=== PATIENT | female | born 2000 | race Caucasian/White ===

== ENCOUNTER 2021-12-04 04:44 | Observation (INO) | payer BC, SELFPAY ==
[2021-12-04] VITALS (12 sets, daily range): BP systolic 108–156; BP diastolic 59–103; PULSE 62–90; RESP 16–20; TEMP 36.3–36.9; O2SAT 97–100; BMI 24.3
--- NOTE | ~2021-12-04 | CT_ITS ---
EXAMINATION: CT abdomen pelvis w con DATE: 12/04/2021 09:51 INDICATION: Left lower quadrant pain. History of UTI. Sepsis. TECHNIQUE: Computed tomography (CT) of the abdomen and pelvis was performed with 100 cc Omnipaque 300 intravenous contrast. The dose-length product was 456.80 mGy-cm. Automated exposure control and iter ative reconstruction technique were employed. COMPARISON: None. FINDINGS: Lung bases are unremarkable. Heart size normal. No significant pleural or pericardial effus ion. The liver, spleen, pancreas, adrenal glands and kidneys are unremarkable. Gallbladder is present . No free air or free fluid. Nonobstructive bowel gas pattern. No evidence for appendicitis or divert iculitis. No significant vascular abnormality. IMPRESSION: 1. No acute abdominal abnormality. Reviewed, dictated and finalized at location B.
[2021-12-04 05:37] LABS: Basophils Percent Auto 0.2 % (0.2-1.2); Eosinophils Absolute Auto 0.5 K/mm3 (0-0.3); Eosinophils Percent Auto 2.8 % (0-4.4); Hematocrit 43.9 % (37.0-47.0); Hemoglobin 14.7 g/dL (12.0-15.0); Immature Granulocyte Absolute 0.06 K/mm3 (0.00-0.031); Immature Granulocyte Percent A 0.3 % (0-0.5); Lymphocytes Absolute Auto 1.87 K/mm3 (0.9-3.2); Lymphocytes Percent Auto 10.2 % (18.3-44.2); Mean Corpuscular HGB Conc 33.5 g/dl (32-36); Mean Corpuscular Hemoglobin 30.1 pg (26-34); Mean Corpuscular Volume 89.8 fl (80-100); Mean Platelet Volume 10.1 fl (7.4-10.4); Monocytes Absolute Auto 1.2 K/mm3 (0.1-0.6); Monocytes Percent Auto 6.5 % (2.6-8.5); Neutrophils Absolute Auto 14.7 K/mm3 (1.3-6.7); Platelet Count Result 245 k/mm3 (150-375); Red Blood Count 4.89 M/mm3 (4.2-5.4); Red Cell Distribution Width 13.2 % (11.5-14.5); White Blood Count 18.4 K/mm3 (4.5-10.0)
[2021-12-04 05:47] LABS: Anion Gap 9 mmol/L (8-16); Blood Urea Nitrogen 13 mg/dL (7-17); Calcium 9.1 mg/dL (8.4-10.2); Carbon Dioxide 21 mmol/L (22-30); Chloride 107 mmol/L (98-107); Estimated CRCL calculation 137 ml/min; Estimated Glomerular Filt Rate > 60; Glucose 119 mg/dL (65-110); Potassium 3.9 mmol/L (3.4-5.0); Sodium 137 mmol/L (137-145)
[2021-12-04] MEDS: cefTRIAXone 2 GM in SODIUM CHLORIDE 0.9% IV 100 ML 200 ML IVPB (05:47)
[2021-12-04 06:12] LABS: Appearance Urine Clear (Clear); Bilirubin Urine 1+ (Negative); Color Urine Yellow (Yellow); Glucose Urine UA Negative (Negative); Ketones Urine Trace mg/dL (Negative); Leukocyte Esterase Ur Negative LEU/UL (Negative); Nitrate Urine Negative (Negative); Protein Urine 1+ mg/dL (Negative); Specific Grav Ur >= 1.030 (1.001-1.035); Urobilinogen Urine 0.2 mg/dL (<2.0)
[2021-12-04 06:21] LABS: Add Urine Microscopic? YES; Blood Urine Trace-Intact (Negative)
[2021-12-04 06:23] LABS: Bacteria Urine Trace /hpf; Mucus Urine Few /lpf; Squamous Epithelial Cell Urine Many /hpf (Few)
--- NOTE | 2021-12-04 07:07 | ED.FEMALEGU ---
HPI - Female Genitourinary General Chief complaint: Abdominal Pain <Shannan Brand MD - Last Filed: 12/04/21 08:14> Stated complaint: vomiting x 1 hour - another facility uti/sepsis <Shannan Brand MD - Last Filed: 12/04/21 08:14> Time Seen by Provider: 12/04/21 05:01 <Shannan Brand MD - Last Filed: 12/04/21 08:14> History of Present Illness HPI Narrative: Patient had been seen at an outside hospital, diagnosed with a UTI, started on antibiotics but she left AMA. She is now having nausea and vomiting, right flank pain still. Also endorses some vaginal discharge. <Shannan Brand MD - Last Filed: 12/04/21 08:14> Related Data Allergies/Adverse reactions: Allergies Allergy/AdvReac Type Severity Reaction Status Date / Time Penicillins Allergy Unknown Hives Verified 12/04/21 07:24 <Shannan Brand MD - Last Filed: 12/04/21 08:14> Review of Systems Review of Systems: CONST: No fever. HEENT: No sore throat C/V: No chest pain RESP: No cough GI: Reports abdominal pain, nausea, vomiting : Vaginal discharge. M/S: No joint pain. SKIN: No rash. NEURO: [No headache or focal numbness or weakness] PSYCH: [No depression] <Shannan Brand MD - Last Filed: 12/04/21 08:14> [facility] Past Medical History Medical History: Medical History (Updated 12/04/21 @ 10:41 by Moo Gutierrez MD) Psychiatric disorder <Shannan Brand MD - Last Filed: 12/04/21 08:14> Social History Social History: Social History (Updated 12/04/21 @ 07:12 by Shannan Brand MD) Alcohol intake: former Substance use: former <Shannan Brand MD - Last Filed: 12/04/21 08:14> Exam Narrative: EXAMINATION OF ORGAN SYSTEMS/BODY AREAS: Constitutional: Vital signs per nursing GENERAL: Appears uncomfortable, actively retching HEAD: Normal with no signs of head trauma. EYES: EOMI, conjunctiva normal ENT: Hearing grossly intact LUNGS: Nonlabored breathing. HEART: [Regular rate and rhythm] ABD: [Soft], R CVAT : Patient refused /pelvic exam EXT: Normal range of motion SKIN: Rash NEURO: [Alert and oriented x 3. No gross focal sensory or strength deficits.] PSYCH: Normal affect <Shannan Brand MD - Last Filed: 12/04/21 08:14> General appearance: Well-developed, well-nourished does not look in pain or distress until I examined her left lower quadrant which triggered severe vomiting Skin: Normal color Chest and respiratory: Airway patent, no respiratory distress, no accessory muscle use Heart: Regular rate/rhythm Abdomen: Soft, severe tenderness left lower quadrant, no guarding or rebound no organomegaly, quiet bowel sounds Neurologic: Alert and oriented ?3, SILK CONDITIONER is normal as tested, no gross motor deficit <Moo Gutierrez MD - Last Filed: 12/04/21 11:13> Course Course Emergency Course: 21-year-old female presenting here after being diagnosed with UTI at outside hospital and leaving AMA, vital stable here, exam shows soft, nontender abdomen, I suspect likely UTI, versus gastroenteritis versus PID. Doubt endocarditis without chest pain/shortness of breath and IV drug use last 1 year ago. Urine does show UTI, she also squamous cells, however she does not want pelvic exam so I cannot assess for PID, though her abdomen is soft and nontender and benign. I will treat her empirically for STDs, and for nausea and vomiting, patient signed out to oncoming ER physician pending improvement in her nausea/vomiting. <Shannan Brand MD - Last Filed: 12/04/21 08:14> Reevaluation(s) Reevaluation #1: Currently patient feeling much better, CT scan of the abdomen pelvis did not show any significant finding to explain patient's severe left lower quadrant pain with vomi
[2021-12-04] MEDS: diphenhydrAMINE HCl INJ 50 MG/ML VIAL 25 MG IV PUSH (07:25)
[2021-12-04] MEDS: LACTATED RINGERS 1,000 ML 999 ML IV CONT (07:25)
[2021-12-04] MEDS: METOCLOPRAMIDE HCL INJ 10 MG/2 ML VIAL IV PUSH (07:25)
[2021-12-04] MEDS: metroNIDAZOLE 500 MG/ISO 100ML 500 MG/100 ML BAG 100 MG IVPB (07:34)
[2021-12-04] MEDS: DOXYCYCLINE 100 MG/NS 100 ML 100 MG/100 ML BAG IVPB ×2 (08:57→20:16)
[2021-12-04] MEDS: SODIUM CHLORIDE 0.9% IV 1,000 ML 999 ML IV CONT (09:53)
[2021-12-04] MEDS: ONDANSETRON INJ 4 MG/2 ML VIAL 8 MG IV PUSH (09:54)
[2021-12-04 10:02] LABS: Lipase 80 U/L (23-300)
[2021-12-04 11:58] LABS: Amphetamine Screen Urine Positive (Negative); Barbiturate Screen Urine Negative (Negative); Benzodiazepines Screen Urine Negative (Negative); Cannabinoid Screen Urine Positive (Negative); Cocaine Screen Urine Negative (Negative); Methadone Screen Urine Negative (Negative); Opiate Screen Urine Negative (Negative); Phencyclidine Screen Urine Negative (Negative)
[2021-12-04] MEDS: SODIUM CHLORIDE 0.9% IV 1,000 ML 150 ML IV CONT (12:59)
[2021-12-04] MEDS: ONDANSETRON INJ 4 MG/2 ML VIAL IV PUSH ×2 (13:55→17:51)
--- NOTE | 2021-12-04 15:22 | ADMGEN ---
This patient, Alejandra Najera, was admitted to 2 Medical Room 240-01. Patient/family oriented to hospital policies and general routines including ID bracelet, bed and alarms, visiting hours, pain management, procedures, bathroom and other care routines, personal items, smoking policy, room service/diet, and visiting hours. Information on how to activate the Rapid Response Team has been discussed. Patient/Family are encouraged to report perceived risks to care and to ask questions if they do not understand what they are told or what they should do.
--- NOTE | 2021-12-04 17:48 | PM.IMHP ---
H&P: HPI History of Present Illness Date/Time: Patient was placed observation status for expected length of stay less than 23 hours for management, will plan to re-evaluate tomorrow for improvement. 12/04/21 17:48 Chief Complaint: Nausea and vomiting Narrative: Ms. Najera is a 21-year-old female who presented to the emergency room with complaints of nausea and vomiting. Patient states that she was recently hospitalized an outside hospital for sepsis from a urinary tract infection and was given antibiotics overnight then sent home. Per the emergency room records patient stated that she had left against medical advice. In the emergency room patient stated she was still having nausea vomiting as well as right flank pain. Patient had also complained of vaginal discharge, but refused to have a pelvic exam. Per EMS patient was seen at [facility] as well as [facility]. Patient states that at [facility] she was hospitalized for 1 night. Patient states she did receive 24 hours of antibiotics and was sent home with no further antibiotics. Patient states that 2 nights ago she did drink a 5th of Javed Goose and has recently been smoking methamphetamines. Patient states she continues to have right flank pain that radiates to her abdomen. Patient denies any dysuria, hematuria, frequency, or urgency. Patient states she has had continuous nausea and vomiting. Per patient's outpatient pharmacy patient did have a prescription for doxycycline as well as metronidazole. Upon evaluation emergency room patient did have a urinalysis performed and refused a pelvic exam. It was noted the patient had a leukocytosis with a white blood cell count of 18.4 with a urinalysis that showed no nitrites 4-6 wbc's many squamous epithelial cells trace bacteria and negative for leukocyte esterase. Patient's drug screen was positive for amphetamines as well as cannabinoids. Since patient did refuse pelvic exam she was treated with doxycycline, Rocephin, and Flagyl. Patient states her only past medical history is alcohol and drug abuse. Review of Systems Review of Systems: A 12 point review of systems was completed patient all pertinent positive and negative per HPI the remainder are unremarkable. [facility] Past Medical History Medical History (Updated 12/04/21 @ 18:04 by Miranda Jeffrey APRN) Alcohol abuse Drug abuse Psychiatric disorder Family History Family History (Updated 12/04/21 @ 15:27 by Caty Best RN) Father Diabetes mellitus Mother Diabetes mellitus Cerebrovascular accident Father Cerebrovascular accident Mother Acute myocardial infarction Social History Social History (Updated 12/04/21 @ 07:12 by Shannan Brand MD) Years smoked: 5 Smoking status: Current every day smoker Tobacco type: e-cigarettes/vaping Second hand tobacco smoke exposure: Yes Alcohol intake: former Substance use: former Substance use type: marijuana, amphetamines and opiates Other substance usage details: Patient states use of Marijuana, Methamphetamine and Fentanyl. Last use: marijuana- yesterday, amphetamines- 2 days ago, opiates- 2 wks ago Spiritual care concerns: No Meds Home Medications and Allergies Home Medications Medication Instructions Recorded Confirmed Type doxycycline hyclate 100 mg PO DAILY #14 tablet 12/04/21 Rx metronidazole 500 mg PO Q12H 7 Days #14 tablet 12/04/21 Rx ondansetron 4 mg PO Q6H PRN #14 tablet 12/04/21 Rx Allergies Allergy/AdvReac Type Severity Reaction Status Date / Time Penicillins Allergy Unknown Hives Verified 12/04/21 15:22 Vital Signs Vital Signs - 24 hr 12/04/21 04:47 12/04/21 04:56 12/04/21 06:47 Temperature 36.3 C L Pulse Rate 84 88 90 Respiratory Rate 20 20 18 Blood Pressure 135/88 135/88 127/87 Pulse Oximetry 97 99 97 12/04/21 09:03 12/04/21 09:58 12/04/21 11:08 Temperature 36.4 C Pulse Rate 68 62 65 Respiratory Rate 16 17 16 Blood Pressu
[2021-12-04] MEDS: NICOTINE (*PBKC) 21 MG PATCH 1 PATCH TRANSDERM (20:14)
[2021-12-04] MEDS: LORazepam (*CRX) 1 MG TABLET PO (20:16)
[2021-12-04] MEDS: hydrOXYzine HCL 25 MG TABLET 50 MG PO (21:33)
[2021-12-05] VITALS: BP 128/59
[2021-12-05] MEDS: SODIUM CHLORIDE 0.9% IV 1,000 ML 150 ML IV CONT (03:06)
[2021-12-05] MEDS: ONDANSETRON INJ 4 MG/2 ML VIAL IV PUSH ×2 (03:06→08:23)
[2021-12-05 04:00] VITALS: BP 128/59
[2021-12-05 06:48] LABS: Alanine Aminotransferase 31 U/L (6-35); Alkaline Phosphatase 58 U/L (38-126); Anion Gap 8 mmol/L (8-16); Aspartate Amino Transferase 35 U/L (14-36); Bilirubin,Total 0.7 mg/dL (0.2-1.3); Blood Urea Nitrogen 9 mg/dL (7-17); Calcium 8.6 mg/dL (8.4-10.2); Carbon Dioxide 25 mmol/L (22-30); Chloride 104 mmol/L (98-107); Estimated CRCL calculation 119 ml/min; Estimated Glomerular Filt Rate > 60; Glucose 105 mg/dL (65-110); Potassium 3.8 mmol/L (3.4-5.0); Sodium 137 mmol/L (137-145)
[2021-12-05 07:05] VITALS: BP 138/80; PULSE 81; RESP 18; TEMP 36.7; O2SAT 100
[2021-12-05] MEDS: LORazepam (*CRX) 1 MG TABLET PO (08:34)
[2021-12-05] MEDS: NICOTINE (*PBKC) 21 MG PATCH 1 PATCH TRANSDERM (08:34)
[2021-12-05] MEDS: ENOXAPARIN 40 MG/0.4 ML SYRINGE SUB-Q (08:34)
--- NOTE | 2021-12-05 09:06 | PM.IMPN ---
Progress Note: A&P Assessment and Plan (1) Nausea & vomiting: Qualifiers: Vomiting type: unspecified Qualified Code(s): R11.2 - Nausea with vomiting, unspecified Code(s): R11.2 - Nausea with vomiting, unspecified Status: Acute Assessment and Plan: Etiology of nausea vomiting could be multifactorial. Patient states she has been drinking again. Patient states he did drink a 5th of Javed Goose vodka the other night. Patient did have a prescription filled for Flagyl, and if patient was drinking while taking Flagyl this to cause profuse vomiting. Patient's urinalysis appears to be more contaminant then a urinary tract infection. Patient is refusing pelvic exam but chlamydia and gonorrhea were ordered off of patient's urine. Will continue to treat for possible PID at this time. Patient states she does smoke marijuana on a regular basis. She could also possibly have cyclic vomiting syndrome from routine use of cannabinoids. (2) Abdominal pain: Qualifiers: Abdominal location: left lower quadrant Qualified Code(s): R10.32 - Left lower quadrant pain Code(s): R10.9 - Unspecified abdominal pain Status: Acute Assessment and Plan: Patient's CT scan shows no acute abdominal abnormality. Unsure of patient's abdominal pain is secondary to vomiting. At this point time will continue to monitor patient. (3) Drug abuse: Code(s): F19.10 - Other psychoactive substance abuse, uncomplicated Status: Acute Assessment and Plan: Patient states that she did smoke methamphetamines 2 nights ago and her urine drug screen was positive for amphetamines. (4) Alcohol abuse: Code(s): F10.10 - Alcohol abuse, uncomplicated Status: Acute Assessment and Plan: Patient states she did drink a 5th of Javed Goose [address] patient on [facility] protocol and monitor closely (5) Anxious appearance: Code(s): R45.89 - Other symptoms and signs involving emotional state Status: Acute Assessment and Plan: continue conversations to relieve anxiety Subjective Date/time seen: 12/05/21 09:06 Patient appears very anxious this morning. She is sitting walking about in the room. Patient reports that her friends are underway to come pick her up. She does not want to be admitted to the hospital. She is signing out AMA. She is alert and oriented x4. At the time of her signing out AMA she denied any nausea, vomiting, upset stomach or diarrhea. She reports that if she becomes significantly worse she will come back to hospital. of note the patient does have a significant drug abuse history and reports doing methamphetamines 2 days ago. She may be withdrawing from additional substances. Review of Systems Review of Systems: All systems reviewed & are unremarkable except as noted in HPI and below Exam Narrative: General: No acute distress. Anxious, fidgeting Mental Status: Awake, alert and oriented to person, place, and time with clear speech. Skin: Skin in warm, dry and intact. scattered abrasion bilateral upper extremities Head: Normocephalic and atraumatic. Eyes: Conjunctivae are clear without exudates or hemorrhage. Sclera is non-icteric. EOM are intact, PERRLA. Ears: The external ear and canal are non-tender and without swelling or discharge. Nose: Nasal mucosa is pink and moist. Septum midline. Nares patent bilaterally. Throat: Oral mucosa pink and moist with good dentition. Tongue midline. Neck: The neck supple without adenopathy. Trachea midline. No JVD. Cardiac: S1 and S2 regular rate and rhythm. No murmurs, gallops, or rubs auscultated. Respiratory: Chest wall symmetric, nontender and without deformity or trauma. Respirations even and unlabored. Lung sounds are clear to auscultation in all lobes bilaterally without wheezes, rhonchi, or rales. Abdominal: Abdomen soft, round and non-tender to palpation. Bowel sounds present and normoactiv
--- NOTE | 2021-12-05 09:19 | PC.NURSE ---
Pt requesting to be discharged. It was explained that she cannot be discharged but will be leaving against medical advice. Pt was provided an AMA form, which she signed. PA at the bedside explained to her that she has an infection and requires IV abx, which she had received up until this time. The PA told her that if she leaves from here that she will need to go to another healthcare provider, hospital ER, or Urgent Care center to get a prescription for oral antibiotics and furhter treatment for her condition. Pt apologized for leaving, stating that she didn't want to be a jerk--everyone here has been so nice. But, I can't stand being in the hospital. I have to get out of here. My sister will take me to [place]. Pt was wheeled to main entrance to await her ride.
== END 2021-12-05 09:13 | disposition left against medical advice (07) ==
LOC: ANHED 11:12 → ANH3MEDSUR 13:48 → ANH2MED 14:06
PROVIDERS: Emergency Medicine; Nurse Practitioner Adult Health; Admitting Provider Chiropractor; Emergency Provider Emergency Medicine; Visit Provider Chiropractor
DX: R11.2 Nausea with vomiting, unspecified (principal); R10.9 Unspecified abdominal pain; F17.290 Nicotine dependence, other tobacco product, uncomplicated; F12.90 Cannabis use, unspecified, uncomplicated; F15.90 Other stimulant use, unspecified, uncomplicated; F11.90 Opioid use, unspecified, uncomplicated; F10.10 Alcohol abuse, uncomplicated; R45.89 Other symptoms and signs involving emotional state
CPT/HCPCS: 36415; 74177; 80048; 80053; 80307; 81001; 81025; 83690; 83735; 85025; 87040; 87491; 87591; 96361; 96365; 96367; 96372; 96375; 96376; 99285; A9270; G0378; G0379; J0696; J1200; J1650; J2405; J2765; J7030; J7120; Q9967

== ENCOUNTER 2024-11-15 09:09 | Emergency (ER) | payer BC, SELFPAY ==
--- NOTE | ~2024-11-15 | CT_ITS ---
EXAMINATION: CT abdomen pelvis w con DATE: 11/15/2024 12:16 INDICATION: Abdominal pain TECHNIQUE: Computed tomography (CT) of the abdomen and pelvis was performed with 100 mL Omnipaque-350 intravenous contrast. Automated exposure control and iterative reconstruction technique were employe d. The dose-length product was 571.98 mGy-cm. COMPARISON: 12/04/2021 FINDINGS: Lung bases are clear. Heart size is normal. No pericardial or pleural effusion. Liver, gallbladder, s pleen, pancreas, bilateral adrenal glands and kidneys are normal. Bowels including the appendix are n ormal. Bladder, uterus and bilateral adnexa are unremarkable. Small amount of likely physiologic free fluid in the cul-de-sac. No abscess or free intraperitoneal gas. No pathologically enlarged abdomina l or pelvic lymphadenopathy. Bones are unremarkable. IMPRESSION: 1. Small amount of likely physiologic free fluid in the cul-de-sac. No acute intra-abdominal/pelvic p rocess. Reviewed, dictated and finalized at location B. IMPRESSION: 1. Small amount of likely physiologic free fluid in the cul-de-sac. No acute in tra-abdominal/pelvic process.
--- NOTE | ~2024-11-15 | XR_ITS ---
EXAMINATION: XR chest 2V DATE: 11/15/2024 10:09 INDICATION: Recent pneumonia TECHNIQUE: PA and lateral views of the chest were obtained. COMPARISON: None FINDINGS: The lungs are clear with no focal airspace opacities, pulmonary edema, pleural effusion or pneumothor ax. The cardiomediastinal silhouette is normal. Visualized bones and soft tissues are unremarkable. IMPRESSION: 1. No acute cardiopulmonary disease. Reviewed, dictated and finalized at location B.
[2024-11-15 09:25] VITALS: BP 131/83; PULSE 103; RESP 16; TEMP 36.8; O2SAT 100
--- OUTSIDE RECORDS SUMMARY | 2024-11-15 09:42 | XMS_ITS | Patient Health Record ---
Author Organization [facility] Address [address] [place] [address] Care Team Providers Care Roll Changer Name Role Phone JimenesFransisca Primary Care Provider [phone] Annabel Wiggins Unavailable [phone] Annabel Wiggins Unavailable [phone] Allergies Allergen (clinical drug ingredient) Drug/Non Drug Allergy documented on EMR Reaction Allergy Type Onset Date Status PENICILLIN hives Drug Allergy Active Reason For Referral No Information Medications Medication SIG (Take, Route, Fr equency, Duration) Notes Start Date End Date Status Concerta 54 MG 1 tablet in the morn ing Orally Once a day for 30 days 05/04/2018 Active cloNIDine HCl 0.1 MG 1-3 tablet Orally a s directed. full tablet in am and three tablet in pm for 30 days Active Zoloft 50 MG 1 tablet Orally Once a day for 30 days Active Vistaril 100 MG 1 capsule as needed Orally three times daily for 30 days Ac tive Tryptophan 500 MG 1 tablet Orally Once a day at bedtime as needed for sleep for 30 days 04/04/2018 Active LaMICtal 25 MG 2 tablets Orally onc e daily for 30 days Active Concerta 54 MG 1 tablet in the morn ing Orally Once a day for 30 days 04/08/2018 Active Social History Tobacco Use: Social History Observation Description Date Details (start date - stop date) Current Smoker NA - NA Sex Assigned At : Social History Observation Description Sex Assigned At Female Dont use, Tobacco Use/Smoking Question Answer Notes Are you a current smoker Section Notes: Discussed the risks of smoki ng and discussed smoking cessations. Discussed the risks of smoki ng and discussed smoking cessations. Discussed the risks of smoki ng and discussed smoking cessations. Discussed the risks of smoki ng and discussed smoking cessations. Discussed the risks of smoki ng and discussed smoking cessations. Discussed the risks of smoki ng and discussed smoking cessations. Discussed the risks of smoki ng and discussed smoking cessations. Discussed the risks of smoki ng and discussed smoking cessations. Discussed the risks of smoki ng and discussed smoking cessations. Discussed the risks of smoki ng and discussed smoking cessations. Discussed the risks of smoki ng and discussed smoking cessations. Discussed the risks of smoki ng and discussed smoking cessations. Discussed the risks of smoki ng and discussed smoking cessations. Discussed the risks of smoki ng and discussed smoking cessations. Discussed the risks of smoki ng and discussed smoking cessations. Discussed the risks of smoki ng and discussed smoking cessations. Discussed the risks of smoki ng and discussed smoking cessations. Discussed the risks of smoki ng and discussed smoking cessations. Discussed the risks of smoki ng and discussed smoking cessations. Discussed the risks of smoki ng and discussed smoking cessations. Problems Problem Type SNOMED Code ICD Code Onset Dates Problem Status W/U Status Risk Notes Problem [id number] PTSD (post-traumatic stress disorder) (F43.10) Active confirmed Problem 430986245 ADHD (attention deficit hyperactivity disorder) (F90.9) Active confirmed Problem [id number] 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 Plan Of Treatment No Information Insurance Providers Payer Name Payer Address Payer Phone Subscriber Number Group Number Insured Name Patient Relationship to Insured Coverage Start Date Coverage End Date [facility] Attn Claims Department [address] [place] [address] [phone] [id number] Alejandra Najera Self - patient is the insured 4 [facility] Attn Claims Department [address] [place] [address] [phone] [id number] Alejandra Najera Self - patient is the insured 1 Medical (General) History Hospitalization History Reason Date(Month/Year) cutting october 201608/05 SI 09/05
--- OUTSIDE RECORDS SUMMARY | 2024-11-15 09:42 | XMS_ITS | Clinical Summary ---
Author Organization [facility] Address [address] [place] [address] Care Team Providers Care Manager Search Name Role Phone Unavailable Primary Care Provider Unavailabl e Social History Tobacco Use Types Packs/Day Years Used Date Smoking Tobacco: Never Assessed Comments Unknown Sex and Gender Information Value Date Recorded Sex Assigned at Not on file Legal Sex Female 7:53 PM CDT Gender Identity Not on file Sexual Orientation Not on file Plan of Treatment Health Maintenance Due Date Last Done Comments Cervical Cancer Screening Pa p Smear (Age 21 to 29) Every 3 Years 2001 Cervical Cancer Screening 2001 Annual Physical 01/29/2004 HPV Vaccines (1 - 3-dose series) 01/29/2016 Meningococcal B Vaccine (1 o f 2 - Standard) 2017 Hepatitis C 2019 DTaP, Tdap and Td Vaccines ( 1 - Tdap) 01/29/2020 Hepatitis B Vaccines (1 of 3 - 19+ 3-dose series) 01/29/2020 COVID-19 Vaccine ( - 2023-2 5 season) 2024 Meningococcal Vaccine Aged Out No zafar randell eligible based on patient's age to complete this topic Pneumococcal Vaccine: Pediat rics (0 to 5 Years) and At-Risk Patients (6 to 49 Years) Aged Out No longer eligible b ased on patient's age to complete this topic RSV Immunizations Under 20 Months Aged Out No longer eligible based on patient's age to complete this topic
--- OUTSIDE RECORDS SUMMARY | 2024-11-15 09:42 | XMS_ITS | CONTINUITY OF CARE DOCUMENT ---
Author Name patrick nguyen Address Unknown Organization [facility] Address [address] [place] [address] Phone [phone] Care Team Providers Care Coverage Specialist Name Role Phone John Luna MD Unavailable [phone] John Luna MD Unavailable [phone] INSURANCE PROVIDERS Payer name Policy type / Coverage type [place] red republican [employer] Medicaid 1 [id number] [facility] [id number]
--- NOTE | 2024-11-15 09:57 | ECG_ITS ---
Test Date: 2024-11-15 10:46:16 Measurements Intervals [place] Rate: 92 P: 35 WV: 158 QRS: 71 QRSD: 103 T: 39 QT: 357 QTc: 443 Interpretive Statements SINUS RHYTHM NORMAL ECG No previous ECG available for comparison Electronically Signed On 11-15-2024 10:57:09 CDT by Earnest Burciaga D.O.
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
[2024-11-15 10:41] LABS: Basophils Absolute Auto 0.1 K/mm3 (0.0-0.1); Basophils Percent Auto 0.6 % (0.2-1.2); Eosinophils Absolute Auto 0.4 K/mm3 (0-0.3); Hematocrit 42.2 % (37.0-47.0); Hemoglobin 13.3 g/dL (12.0-15.0); Immature Granulocyte Absolute 0.03 K/mm3 (0.00-0.031); Immature Granulocyte Percent A 0.3 % (0-0.5); Lymphocytes Absolute Auto 2.23 K/mm3 (0.9-3.2); Lymphocytes Percent Auto 22.1 % (18.3-44.2); Mean Corpuscular HGB Conc 31.5 g/dl (32-36); Mean Corpuscular Hemoglobin 28.7 pg (26-34); Mean Corpuscular Volume 91.1 fl (80-100); Mean Platelet Volume 9.6 fl (7.4-10.4); Monocytes Absolute Auto 0.8 K/mm3 (0.1-0.6); Monocytes Percent Auto 7.9 % (2.6-8.5); Neutrophils Absolute Auto 6.6 K/mm3 (1.3-6.7); Neutrophils Percent Auto 65.1 % (45.5-73.1); Platelet Count Result 246 k/mm3 (150-375); Red Blood Count 4.63 M/mm3 (4.2-5.4); Red Cell Distribution Width 12.5 % (11.5-14.5); White Blood Count 10.1 K/mm3 (4.5-10.0)
[2024-11-15] MEDS: LORazepam INJ (*CRX) 2 MG/ML VIAL 1 MG IV PUSH (10:45)
[2024-11-15 10:46] LABS: Bacteria Urine None Seen /hpf; Non Pathogenic Casts 0-2; RBC Urine 0-2 /hpf (0-2); Squamous Epithelial Cell Urine Occasional /hpf (Few); WBC Urine 0-5 /hpf (0-3)
[2024-11-15 10:47] LABS: Alanine Aminotransferase 20 U/L (6-35); Albumin Level 4.7 g/dL (3.5-5.1); Alkaline Phosphatase 77 U/L (38-126); Anion Gap 14 mmol/L (4-12); Aspartate Amino Transferase 26 U/L (14-36); Bilirubin,Total 0.6 mg/dL (0.2-1.3); Blood Urea Nitrogen 11 mg/dL (7-17); Calcium 9.4 mg/dL (8.4-10.2); Carbon Dioxide 23 mmol/L (22-30); Chloride 106 mmol/L (98-107); Estimated CRCL calculation 132 ml/min; Estimated Glomerular Filt Rate > 60; Glucose 93 mg/dL (65-110); Lipase 96 U/L (23-300); Potassium 3.7 mmol/L (3.4-5.0); Sodium 143 mmol/L (137-145)
[2024-11-15 10:48] LABS: Appearance Urine Clear (Clear); Color Urine Yellow (Yellow); Ethanol 86 mg/dL (<10); Protein Urine Negative (Negative); Specific Grav Ur 1.025 (1.001-1.035); pH Urine 5.5 (5.0-9.0)
[2024-11-15 10:49] LABS: Add Urine Microscopic? YES; Bilirubin Urine Negative (Negative); Blood Urine 1+ (Negative); Glucose Urine UA Negative (Negative); Ketones Urine Negative (Negative); Leukocyte Esterase Ur Negative LEU/UL (Negative); Nitrate Urine Negative (Negative); Urobilinogen Urine 0.2 mg/dL (<2.0)
[2024-11-15 10:58] LABS: NT Pro B Type Natriuretic Pept < 20 pg/mL (19.9-100); Troponin I < 0.012 ng/mL (0.000-0.034)
[2024-11-15 11:00] LABS: INR 0.9; Prothrombin Time 12.4 Seconds (11.1-14.7)
[2024-11-15 11:02] LABS: Barbiturate Screen Urine Negative (Negative); Benzodiazepines Screen Urine Positive (Negative)
[2024-11-15 11:04] LABS: Amphetamine Screen Urine Positive (Negative); Cannabinoid Screen Urine Positive (Negative); Cocaine Screen Urine Negative (Negative); Methadone Screen Urine Negative (Negative); Opiate Screen Urine Positive (Negative); Phencyclidine Screen Urine Negative (Negative)
[2024-11-15 11:08] LABS: D Dimer 0.29 ug/mL (<0.48)
[2024-11-15 11:27] LABS: HIV 1/2 Ab P24 Ag Result Negative (Negative)
--- OUTSIDE RECORDS SUMMARY | 2024-11-15 11:58 | XMS_ITS | Clinical Summary ---
Author Organization [facility] Address [address] [place] [address] Care Team Providers Care Job Order Clerk Name Role Phone Unavailable Primary Care Provider [...]
--- OUTSIDE RECORDS SUMMARY | 2024-11-15 11:58 | XMS_ITS | CONTINUITY OF CARE DOCUMENT ---
Author Name patrick nguyen Address Unknown Organization [facility] Address [address] [place] [address] Phone [phone] Care Team Providers Care Instructional Specialist Name Role Phone John Luna MD Unavailable [phone] John Luna MD Unavailable [phone] INSURANCE PROVIDERS Payer name Policy type / Coverage type [place] red democrat ID [employer]ILY [employer] Medicaid 1 [id number] [facility] [id number]
--- OUTSIDE RECORDS SUMMARY | 2024-11-15 11:58 | XMS_ITS | Continuity of Care Document ---
Author Organization [facility] Address [address] [place] [address] Phone Care Team Providers Care Forklift Mechanic Name Role Phone Ghada White NP Unavailable [...] DIFF WBC OFFICE/OUTPATIENT VISIT, EST School Physicial, [facility] Advance Directives Directive Yes / No Effective Date File Name No Information Encounters Encounter Description Practice Location Reason(s) For Visit Diagnoses Date Provider Providers Copied on Encounter [facility], [address], [place], [place], [id number], [place] tel:[phone] [facility] No Information 0-201 4 Cindy Urrutia. [address] [place], [address], [place]. tel:[phone] [facility], [address], [place], [place], [address], [place] tel:[phone] [facility] No Information 4 [facility]. [address] [address], [address], [place], [place], [address], [place]. tel:[phone] Referring Provider: Ghada Celestin, [address] [place], [address]. tel:[phone] OFFICE/OUTPAT IENT VISIT, [facility], [address], [place], [place], [address], [place] [phone] [facility] er follow up wrist injury (chief complaint) Wrist injury 4 Adama Wade. [address] [place], [address], [place]. tel:[phone] Referring Provider: Laron Barnard, [address] [address], [place], [address]. tel:[phone] School Physicial, [facility], [address], [place], [place], [address], [place] tel:[phone] [facility] school physical (chief complaint) Annual physical examRoutine Medical Exam 4 Cindy Urrutia. [address] [place], [address], [place]. tel:[phone] Family History Family Member Type Diagnosis Age At Onset Father Problem (finding) Diabetes mellitus Mother Problem (finding) Diabetes mellitus Payers Payer name Insurance type Covered democrat ID Authoriza tion(s) [place] Medicaid MC [id number] Social History Type Description Quantity Date Captured [...] wrist injury The masood bliss presented to [facility] on 12/19/13 b/c of injury by fall [...] a physical exam to reside at the [facility]. Voices concerns that both mother and [...]
--- NOTE | 2024-11-15 12:42 | PC.NURSE ---
Patient left department. patient states she is leaving and does not want to stay for discharge. Patient in no distress. patient A&Ox4 and ambulatory. patient verbalized understanding of risks of leaving prior to being discharged. Patient ambulated out of department with steady gate. provider aware
== END 2024-11-15 12:44 | disposition left against medical advice (07) ==
LOC: ANHED 10:39
PROVIDERS: Emergency Provider Registered Nurse
DX: F10.10 Alcohol abuse, uncomplicated (principal); F19.10 Other psychoactive substance abuse, uncomplicated; Y90.4 Blood alcohol level of 80-99 mg/100 ml; R10.32 Left lower quadrant pain; F99 Mental disorder, not otherwise specified; F17.290 Nicotine dependence, other tobacco product, uncomplicated; Z11.4 Encounter for screening for human immunodeficiency virus [HIV]
CPT/HCPCS: 36415; 71046; 74177; 80053; 80307; 81001; 82077; 83690; 83880; 84484; 85025; 85380; 85610; 85730; 86703; 93005; 96374; 99284; G0432; J2060; Q9967

== ENCOUNTER 2025-03-16 13:19 | Emergency (ER) | payer BC, SELFPAY ==
--- OUTSIDE RECORDS SUMMARY | 2013-12-26 06:15 | XMS_ITS | Continuity of Care Document ---
Author Organization [facility] Address [address] [place] [address] Phone Care Team Providers Care Sports Nutritionist Name Role Phone Ghada White NP Unavailable Unavailable Allergies, Adverse Reactions, Alerts Substance Reaction Status Criticality Penicillins hives Active No Information Medications Medication Instructions Dosage Effective Dates (start - stop) Status Comments Geodon 60 mg capsule take 1 capsule (60M G) by oral route 2 times every day with food 60 MG - Active Celexa 20 mg tablet take 1 tablet (20MG) by oral route every day 20 MG - Active Celexa 10 mg tablet take 1 tablet (10MG) by oral route every day 10 MG - Active melatonin 3 mg tablet take 2 by Oral rou te every bedtime - Active Procedures Procedure Date ROUTINE VENIPUNCTURE HFS Tracking Only J URINALYSIS, AUTO W/SCOPE COMPLETE CBC W/AUTO DIFF WBC OFFICE/OUTPATIENT VISIT, EST [facility], [facility] Advance Directives Directive Yes / No Effective Date File Name No Information Encounters Encounter Description Practice Location Reason(s) For Visit Diagnoses Date Provider Providers Copied on Encounter [facility], [address], [place], [place], [id number], [place] tel:[phone] [facility] No Information 0-201 4 Cindy Urrutia. [address] [place], [address], [place]. tel:[phone] [facility], [address], [place], [place], [id number], [place] tel:[phone] [facility] No Information 4 [facility]. [address], [address], [place], [place], [address], [place]. tel:[phone] Referring Provider: Ghada Celestin, [address] [place], [address]. tel:[phone] OFFICE/OUTPAT IENT VISIT, [facility], [address], [place], [place], [id number], [place] [phone] [facility] er follow up wrist injury (chief complaint) Wrist injury 4 Adama Wade. [address] [place], [address], [place]. tel:[phone] Referring Provider: Laron Barnard, [address], [place], [address]. tel:[phone] School Physicial, [facility], [address], [place], [place], [id number], [place] tel:[phone] [facility] school physical (chief complaint) Annual physical examRoutine Medical Exam 4 Cindy Urrutia. [address] [place], [address], [place]. tel:[phone] Family History Family Member Type Diagnosis Age At Onset Father Problem (finding) Diabetes mellitus Mother Problem (finding) Diabetes mellitus Payers Payer name Insurance type Covered libertarian ID Authoriza tion(s) [place] Medicaid MC [id number] Social History Type Description Quantity Date Captured Comments Sex Female Smoking Status No Information Chief Complaint And Reason For Visit No Information Reason For Referral Reason For Referral No Information Plan Of Treatment Date Type Action Status Referral Ordered: X-RAY EXAM OF WRIST Left ordered History Of Present Illness Encounter Date Complaint History Of Prese nt Illness er follow up wrist injury The masood bliss presented to [facility] on 12/19/13 b/c of injury by fall to the left wrist. Correspondence from er visit in file for review. Is wearing a splint and sling both. States pain is about the same as of time of injury. Has not taken any of pain medication prescribed from er. No bruising or swelling noted. school physical The patient ente rs today for a physical exam to reside at the [facility]. Voices concerns that both mother and father are diabetics. No c/o of any symptoms this pm. Immunization records are in file for review. Functional Status Date Functional Assessmen t No Information Instructions Date Instruction Additional Infor kalpesh at risk of diabetes Related to A nnual physical exam Assessments Type Assessment Date No Information Patient Care Teams Name Effective Dates (start - stop) Status Members No Information
--- NOTE | ~2025-03-16 | XR_ITS ---
EXAMINATION: XR ankle LT min 3V, 03/16/2025 13:55 CDT HISTORY: fall ,pain COMPARISON: No comparisons available. Findings: Nondisplaced fracture base of the fifth metatarsal. Small avulsion fracture probably arising from the lateral aspect of the cuboid. No significant degenerative changes. Soft tissues unremarkable. Impression: Fifth metatarsal fracture. Small cuboid avulsion fracture Reviewed, dictated and finalized at location A. Impression: Fifth metatarsal fracture. Small cuboid avulsion fracture
--- NOTE | ~2025-03-16 | XR_ITS ---
XR foot LT min 3V 03/16/2025 14:03 Indication: Left foot pain and bruising Procedure: 3 views left foot Comparison: No prior studies for comparison. Findings: There is a nondisplaced fracture proximal aspect of the fifth metatarsal. Lisfranc joint intact. Moderate diffuse soft tissue swelling. No foreign bodies. Impression: 1: Nondisplaced transverse fracture proximal aspect of the fifth metatarsal. Reviewed, dictated and finalized at location O. Impression: 1: Nondisplaced transverse fracture proximal aspect of the fifth metatarsal.
--- OUTSIDE RECORDS SUMMARY | 2025-03-16 13:21 | XMS_ITS | Patient Health Record ---
Author Organization [facility] Address [address] [place] [address] Care Team Providers Care Special Education Itinerant Teacher Name Role Phone JalilFransisca Primary Care Provider Annabel Wiggins Unavailable [phone] Annabel Wiggins Unavailable [phone] Allergies Allergen (clinical drug ingredient) Drug/Non Drug Allergy documented on EMR Reaction Allergy Type Onset Date Status PENICILLIN hives Drug Allergy Active Reason For Referral No Information Medications Medication SIG (Take, Route, Fr equency, Duration) Notes Start Date End Date Status Concerta 54 MG 1 tablet in the morn ing Orally Once a day; Duration: 30 days 05/04/2018 Ac tive cloNIDine HCl 0.1 MG 1-3 tablet Orally a s directed. full tablet in am and three tablet in pm; Duration: 30 days Active Zoloft 50 MG 1 tablet Orally Once a day; Duration: 30 days Active Vistaril 100 MG 1 capsule as needed Orally three times daily; Duration: 30 days Active Tryptophan 500 MG 1 tablet Orally Once a day at bedtime as needed for sleep; Duration: 30 days 04/04/2018 Active LaMICtal 25 MG 2 tablets Orally onc e daily; Duration: 30 days Active Concerta 54 MG 1 tablet in the morn ing Orally Once a day; Duration: 30 days 04/08/2018 Ac tive Social History Tobacco Use: Social History Observation [...] Problem Status W/U Status Risk Notes Problem Posttraumatic stress disorder (57493846) PTSD (post-traumatic stress disorder) (F43.10) Active confirmed Problem Attention deficit hyperactivity disorder (010017329) ADHD (attention deficit hyperactivity disorder) (F90.9) Active confirmed Problem Dissociative disorder (72056923) 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 Plan Of Treatment No Information Insurance Providers Payer Name Payer Address Payer Phone Subscriber Number Group Number Insured Name Patient Relationship to Insured Coverage Start Date Coverage End Date [facility] Attn Claims Department [address] [place] [address] [phone] [id number] Alejandra Najera Self - patient is the insured 4 [facility] Attn Claims Department [address] [place] [address] [phone] [id number] Alejandra Najera Self - patient is the insured 1 Medical (General) History Hospitalization History Reason Date(Month/Year) cutting october 201608/05 SI 09/05
--- OUTSIDE RECORDS SUMMARY | 2025-03-16 13:21 | XMS_ITS | Clinical Summary ---
Author Organization [facility] Address [address] [place] [address] Care Team Providers Care Supervisor Belt And Link Assembly Name Role Phone Unavailable Primary Care Provider [...] HPV Vaccines (1 - 3-dose series) 01/29/2016 Hepatitis C 2019 DTaP, Tdap and Td Vaccines ( 1 - Tdap) 01/29/2020 Hepatitis B Vaccines (1 of 3 - 19+ 3-dose series) 01/29/2020 COVID-19 Vaccine (2023-2 5 season) 2024 Meningococcal B Vaccine Aged Out No l onger eligible based on patient's age to complete this topic Meningococcal Vaccine Aged Out No zafar randell [...]
[2025-03-16 13:41] VITALS: BP 121/69; PULSE 120; RESP 20; TEMP 36.3; O2SAT 100
--- NOTE | 2025-03-16 13:45 | PC.NURSE ---
Pt using wheelchair to go outside. made pt aware that she needs to be in the waiting room in order to hear her name called.
[2025-03-16 13:55] VITALS: BP 132/78; PULSE 84; RESP 16; TEMP 36.6; O2SAT 100
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
--- NOTE | 2025-03-16 15:01 | PC.NURSE ---
went in room to give medication and pt sleeping, strong odor of ETOH present. Called her name multiple times and she did not answer. It took 3 sternal rubs to wake her up. Not going to administer narcotic due to intoxication
[2025-03-16 15:30] VITALS: BP 136/80; PULSE 86; RESP 16; TEMP 36.6; O2SAT 98
== END 2025-03-16 15:30 | disposition home or self-care (01) ==
PROVIDERS: Emergency Provider Physician Assistant
DX: S92.355A Nondisplaced fracture of fifth metatarsal bone, left foot, initial encounter for closed fracture (principal); S92.212A Displaced fracture of cuboid bone of left foot, initial encounter for closed fracture; F17.290 Nicotine dependence, other tobacco product, uncomplicated; V00.131A Fall from skateboard, initial encounter; Y93.51 Activity, roller skating (inline) and skateboarding
CPT/HCPCS: 29515; 73610; 73630; 99284; A9270

== ENCOUNTER 2025-05-09 16:36 | Emergency (ER) | payer BC, SELFPAY ==
[2025-05-09] VITALS (18 sets, daily range): BP systolic 121–141; BP diastolic 71–100; PULSE 75–113; RESP 12–35; TEMP 37; O2SAT 79–100
--- NOTE | ~2025-05-09 | CT_ITS ---
CT abdomen pelvis w con INDICATION:RLQ pain . COMPARISON: None. TECHNIQUE: Axial images of the abdomen and pelvis were obtained following infusion of 100 mL Isovue 300. Dose optimization technique was utilized. FINDINGS: The lung bases are clear. The liver parenchyma is unremarkable. No intrahepatic mass or ductal dilatation is evident. The gallbladder is unremarkable. The pancreas and spleen are normal in appearance. The adrenal glands are symmetric in size. The kidneys demonstrate symmetric uptake and excretion of contrast. No cystic mass is evident. There is no solid mass. There is no hydronephrosis. The stomach and bowel loops are unremarkable. The appendix is normal in appearance. The bladder and rectum are normal. Endometrium is thickened. There is a 2.1 cm right adnexal cyst. No free intraperitoneal fluid or air is evident. There is no significant retroperitoneal lymphadenopathy. The aorta, visceral vessels and renal arteries demonstrate normal caliber and patency. The lower thoracic and lumbar vertebrae are in normal alignment. IMPRESSION: 2.1 cm right adnexal cyst is noted. Endometrium is thickened. Otherwise, there LLQ abdominal pelvic findings. All CT scans at this facility are performed using low dose modulation techniques as appropriate to perform exam including the following: automated exposure control; use of iterative reconstruction technique; adjustment of the mA and/or kV according to patient size (this includes techniques or standardized protocols for targeted exams where dose is matched to indication/reason for exam). Reviewed, dictated and finalized at location S. IMPRESSION: 2.1 cm right adnexal cyst is noted. Endometrium is thickened. Otherwise, there LLQ abdominal pelvic findings. All CT scans at this facility are performed using low dose modulation techniqu es as appropriate to perform exam including the following: automated exposure c ontrol; use of iterative reconstruction technique; adjustment of the mA and/or kV according to patient size (this includes techniques or standardized protocol s for targeted exams where dose is matched to indication/reason for exam).
--- NOTE | ~2025-05-09 | US_ITS ---
US soft tissue abdomen INDICATION:RLQ pain, palpable mass to RLQ REFERENCE: None TECHNIQUE: High-resolution real-time ultrasound of the right lower quadrant pain FINDINGS: Ultrasound right lower quadrant of the abdomen demonstrate no suspicious solid or cystic mass. IMPRESSION: No suspicious solid or cystic mass seen within the right lower quadrant of the abdomen. Reviewed, dictated and finalized at location S.
--- NOTE | 2025-05-09 17:53 | ED.GENADULT ---
HPI - General Adult General Chief complaint: Unspecified Stated complaint: flank pain Time Seen by Provider: 05/09/25 17:37 History of Present Illness HPI narrative: Patient is a 25-year-old female who presents to the ER with multiple medical complaints. She reports she was at physical therapy earlier today when she felt a ?pop in her right lower abdominal quadrant. Patient reports she immediately started experiencing significant pain. She also endorses vomiting, chest pain, shortness of breath. Patient endorses a history of kidney issues, IV drug use, alcoholism and cholelithiasis. She reports her last bowel movement was today and it was runny. Patient reports she recently had a left foot injury wall long boarding when she was drunk. She denies any urinary symptoms, recent fevers, or upper respiratory infection symptoms. Related Data Allergies Allergy/AdvReac Type Severity Reaction Status Date / Time Penicillins Allergy Unknown Hives Verified 05/09/25 16:38 Review of Systems Review of Systems: All systems reviewed & are unremarkable except as noted in HPI and below PMFSH Past Medical History Medical History Drug abuse Alcohol abuse Psychiatric disorder Family History Family History Father Diabetes mellitus Mother Diabetes mellitus Cerebrovascular accident Father Cerebrovascular accident Mother Acute myocardial infarction Social History Social History Years smoked: 5 Smoking status: Current every day smoker Tobacco type: e-cigarettes/vaping Second hand tobacco smoke exposure: Yes Alcohol intake: former Substance use: former Substance use type: marijuana, amphetamines and opiates Other substance usage details: Patient states use of Marijuana, Methamphetamine and Fentanyl. Last use: marijuana- yesterday, amphetamines- 2 days ago, opiates- 2 wks ago Spiritual care concerns: No Exam Narrative: GENERAL: Ill appearing, well-nourished, non-toxic, in acute distress d/t pain. HEAD: Normocephalic, atraumatic. NECK: Supple. No adenopathy, no masses. RESPIRATORY: Airway patent, respirations nonlabored. Clear to auscultation bilaterally, no rales, rhonchi, wheezing. CARDIOVASCULAR: Regular rate and rhythm without murmurs, rubs, or gallops. Peripheral pulses 2+ and equal bilaterally. ABDOMINAL: Palpable mass approximately 2 inches long in RLQ, + RUQ and RLQ tenderness, distended. Normoactive BS. MUSCULOSKELETAL: Moves all extremities. Strength/ROM intact without gross deformities. SKIN: Warm, dry, normal color. No rashes. NEURO: A&O X3. Speech clear. Cranial nerves II-XII intact. No ataxic movements. PSYCHIATRIC: Appropriate mood and affect. Normal interaction. Course Vital Signs Vital signs: Vital Signs Temperature 37.0 C 05/09/25 16:38 Pulse Rate 113 H 05/09/25 16:38 Respiratory Rate 22 H 05/09/25 16:38 Blood Pressure 141/100 H 05/09/25 16:38 Pulse Oximetry 100 05/09/25 16:38 Temperature 37.0 C 05/09/25 16:38 Pulse Rate 94 05/09/25 20:31 Respiratory Rate 27 H 05/09/25 20:31 Blood Pressure 131/78 05/09/25 20:31 Pulse Oximetry 100 05/09/25 20:31 Medical Decision Making MDM Narrative Medical decision making narrative: Patient is a 25-year-old female who presents to the ER with multiple medical complaints. She reports she was at physical therapy earlier today when she felt a ?pop in her right lower abdominal quadrant. Patient reports she immediately started experiencing significant pain. She also endorses vomiting, chest pain, shortness of breath. Patient endorses a history of kidney issues, IV drug use, alcoholism and cholelithiasis. She reports her last bowel movement was today and it was runny. Patient reports she recently had a left foot injury wall long boarding when she was drunk. She denies any urinary symptoms, recent fevers, or upper respiratory infection symptoms. Patient reports the last time she drank alcohol was last night. Labs Ordered: CBC, CMP, lipase, PTT, INR, lactic acid, ethanol, D-dimer Imaging Ordered: CT abdomen pelvis, ultrasound abdominal soft tissue Medications Ordered: 1 L normal saline IV bolus, Zofran 4 mg IV bolus, morphine 4 mg IV, Dilaudid 0.5 mg IV, Dilaudid 1 mg IV Results: Pt's CT scan indicates 2.1 cm right adnexal cyst is noted. Endometrium is thickened. Otherwise, there LLQ abdominal pelvic findings. Patient has chosen to refuse further care. Risks of an incomplete evaluation and treatment were discussed with the patient, including potential for or permanent disability. Patient seems to understand these risks, but still desires to refuse further care. Patient recommended to follow up with PCP in the next possible interval. Specifically, patient was told they can return to the ED at any time to resume care. Differential Diagnosis Differential Diagnosis: Inguinal hernia, constipation, lipoma, appendicitis Vital Signs Vital Signs: Vital Signs Temperature 37.0 C 05/09/25 16:38 Pulse Rate 113 H 05/09/25 16:38 Respiratory Rate 22 H 05/09/25 16:38 Blood Pressure 141/100 H 05/09/25 16:38 Pulse Oximetry 100 05/09/25 16:38 Temperature 37.0 C 05/09/25 16:38 Pulse Rate 94 05/09/25 20:31 Respiratory Rate 27 H 05/09/25 20:31 Blood Pressure 131/78 05/09/25 20:31 Pulse Oximetry 100 05/09/25 20:31 Lab Data Lab results reviewed: Yes I reviewed the patient's lab results. 05/09/25 18:32 05/09/25 18:32 Labs: Lab Results 05/09/25 05/09/25 05/09/25 Range/Units 18:32 18:49 18:54 WBC 9.0 (4.5-10.0) K/mm3 RBC 4.51 (4.2-5.4) M/mm3 Hgb 13.4 (12.0-15.0) g/dL Hct 39.6 (37.0-47.0) % MCV 87.8 (80-100) fl MCH 29.7 (26-34) pg MCHC 33.8 (32-36) g/dl RDW 12.8 (11.5-14.5) % Plt Count 267 (150-375) k/mm3 MPV 9.6 (7.4-10.4) fl Immature Gran % (Auto) 0.2 (0-0.5) % Neut % (Auto) 57.7 (45.5-73.1) % Lymph % (Auto) 33.9 (18.3-44.2) % [place] % (Auto) 5.9 (2.6-8.5) % Eos % (Auto) 1.7 (0-4.4) % Baso % (Auto) 0.6 (0.2-1.2) % Lymph # (Auto) 3.05 (0.9-3.2) K/mm3 [place] # (Auto) 0.5 (0.1-0.6) K/mm3 Eos # (Auto) 0.2 (0-0.3) K/mm3 Baso # (Auto) 0.1 (0.0-0.1) K/mm3 Abs Immat Gran (auto) 0.02 (0.00-0.031) K/mm3 Absolute Neuts (auto) 5.2 (1.3-6.7) K/mm3 Absolute Nucleated RBC 0.000 (0.0-0.012) K/mm3 Nucleated RBC % 0.0 (0.0-0.2) % PT 12.4 (11.1-14.7) Seconds INR 0.9 APTT 26.0 (22.3-36.8) Seconds D-Dimer < 0.27 (<0.48) ug/mL Sodium 134 L (137-145) mmol/L Potassium 3.6 (3.4-5.0) mmol/L Chloride 102 (98-107) mmol/L Carbon Dioxide 23 (22-30) mmol/L Anion Gap 9 (4-12) mmol/L BUN 9 (7-17) mg/dL Creatinine 0.68 L (0.7-1.0) mg/dL Estim Creat Clear Calc 118 ml/min Estimated GFR > 60 (59 - ) Glucose 92 (65-110) mg/dL Lactic Acid 1.3 (0.7-2.0) mmol/L Calcium 9.5 (8.4-10.2) mg/dL Total Bilirubin 0.5 (0.2-1.3) mg/dL AST 30 (14-36) U/L ALT 20 (6-35) U/L Alkaline Phosphatase 83 (38-126) U/L Troponin I < 0.012 (0.000-0.034) ng/mL Total Protein 8.3 H (6.3-8.2) g/dL Albumin 4.7 (3.5-5.1) g/dL Lipase 52 (23-300) U/L POC Urine HCG, Qual Negative (Negative) Urine Opiates Screen Negative (Negative) Urine Methadone Screen Negative (Negative) Ur Barbiturates Screen Negative (Negative) Ur Phencyclidine Scrn Negative (Negative) Ur Amphetamine Screen Positive A (Negative) U Benzodiazepines Scrn Negative (Negative) Urine Cocaine Screen Negative (Negative) U Cannabinoids Screen Positive A (Negative) Ethyl Alcohol < 10 (<10) mg/dL Imaging Data Attestation: I personally reviewed and interpreted this imaging study as follows: Radiologist's impression: Impressions Abdomen/Pelvis CT 05/09/25 19:44 IMPRESSION: 2.1 cm right adnexal cyst is noted. Endometrium is thickened. Otherwise, there LLQ abdominal pelvic findings. All CT scans at this facility are performed using low dose modulation techniques as appropriate to perform exam including the following: automated exposure control; use of iterative reconstruction technique; adjustment of the mA and/or kV according to patient size (this includes techniques or standardized protocols for targeted exams where dose is matched to indication/reason for exam). Soft Tissue Ultrasound 05/09/25 21:35 IMPRESSION: No suspicious solid or cystic mass seen within the right lower quadrant of the abdomen. Discharge Plan Discharge Clinical Impression: Abdominal pain Qualifiers: Abdominal location: left lower quadrant Qualified Code(s): R10.32 - Left lower quadrant pain Patient Disposition: Left Against Medical Advice Condition: Guarded Prognosis Patient Language: [place] Prescriptions: No Action hydrocodone-acetaminophen 5-325 mg tablet 1 tablet PO Q6H PRN (Reason: pain) Qty: 10 0RF doxycycline hyclate 100 mg tablet 100 mg PO DAILY Qty: 14 0RF metronidazole 500 mg tablet 500 mg PO Q12H 7 Days Qty: 14 0RF ondansetron 4 mg tablet,disintegrating 4 mg PO Q6H PRN (Reason: nausea and vomiting) Qty: 14 0RF Follow-up/Referrals: UNKNOWN,DOCTOR [Primary Care Provider]
--- NOTE | 2025-05-09 18:07 | ECG_ITS ---
Test Date: 2025-05-09 18:27:07 Measurements Intervals Coleman Rate: 84 P: 49 HI: 163 QRS: 73 QRSD: 97 T: 44 QT: 358 QTc: 424 Interpretive Statements SINUS RHYTHM BASELINE ARTIFACT- I, II, III, AVR, AVL, AVF NORMAL ECG Compared to ECG 11/15/2024 10:46:16 No significant changes Electronically Signed On 05-09-2025 18:44:51 CDT by Earnest Burciaga D.O.
[2025-05-09] MEDS: MORPHINE SULFATE (*CRX) 4 MG/ML INJ IV PUSH (18:35)
[2025-05-09] MEDS: ONDANSETRON INJ 4 MG/2 ML VIAL IV PUSH (18:35)
[2025-05-09] MEDS: SODIUM CHLORIDE 0.9% IV 1,000 ML 999 ML IV CONT (18:37)
[2025-05-09 18:50] LABS: Hematocrit 39.6 % (37.0-47.0); Hemoglobin 13.4 g/dL (12.0-15.0); Immature Granulocyte Percent A 0.2 % (0-0.5); Lymphocytes Absolute Auto 3.05 K/mm3 (0.9-3.2); Mean Corpuscular HGB Conc 33.8 g/dl (32-36); Mean Corpuscular Hemoglobin 29.7 pg (26-34); Mean Corpuscular Volume 87.8 fl (80-100); Nucleated Red Blood Cells Absolute Auto 0.000 K/mm3 (0.0-0.012); Nucleated Red Blood Cells Perc 0.0 % (0.0-0.2); Platelet Count Result 267 k/mm3 (150-375); Red Blood Count 4.51 M/mm3 (4.2-5.4); White Blood Count 9.0 K/mm3 (4.5-10.0)
[2025-05-09 18:56] LABS: BEDSIDEPREGUCG Negative (Negative)
[2025-05-09 18:58] LABS: Alanine Aminotransferase 20 U/L (6-35); Albumin Level 4.7 g/dL (3.5-5.1); Alkaline Phosphatase 83 U/L (38-126); Anion Gap 9 mmol/L (4-12); Aspartate Amino Transferase 30 U/L (14-36); Bilirubin,Total 0.5 mg/dL (0.2-1.3); Blood Urea Nitrogen 9 mg/dL (7-17); Calcium 9.5 mg/dL (8.4-10.2); Carbon Dioxide 23 mmol/L (22-30); Chloride 102 mmol/L (98-107); Estimated CRCL calculation 118 ml/min; Estimated Glomerular Filt Rate > 60; Glucose 92 mg/dL (65-110); Lipase 52 U/L (23-300); Potassium 3.6 mmol/L (3.4-5.0); Sodium 134 mmol/L (137-145); Total Protein 8.3 g/dL (6.3-8.2)
[2025-05-09 19:01] LABS: INR 0.9; Prothrombin Time 12.4 Seconds (11.1-14.7)
[2025-05-09 19:02] LABS: Partial Thromboplastin Time 26.0 Seconds (22.3-36.8)
[2025-05-09 19:10] LABS: Troponin I < 0.012 ng/mL (0.000-0.034)
[2025-05-09 19:34] LABS: Cannabinoid Screen Urine Positive (Negative)
[2025-05-09] MEDS: HYDROmorphone HCL INJ (*CRX) 1 MG/ML SYR 0.5 MG IV PUSH (19:41)
--- OUTSIDE RECORDS SUMMARY | 2025-05-09 20:17 | XMS_ITS | Data Portability ---
Author Organization [place] [facility], Main Office Address [address] [place] [address] Assessment Encounter Date Assessment Date Assessment LastModified by Organization Details LastModified Time 03/29/2025 03/29/2025 The patient has a transverse nondisplaced fracture through the base of the 5th metatarsal left foot with a small avulsion fracture of the lateral aspect of the cuboid. Ankle joint likely has a minor sprain as well laterally. We talked about treatment options in detail today we offered her a cam walker boot she was somewhat argumentative and agitated I have advised her that the cam walker boot would give her the best support and that she should wear it when she is up and about. She does have crutches she can use those to stay off of it when she feels comfortable she can start to put weight on her heel. I have advised her that if she is noncompliant gets herself into dangerous activities overdoes it or does not comply with the treatment plan she may end up with a displaced fracture or could end up with a nonunion of the fracture. I advised her to take the boot off a couple of times a day to clean her skin work on range of motion of her ankle we talked about skin care I have advised her to wear a long sock with a cam walker boot to avoid sweat moisture buildup this will also help with the odor in the cushion of the boot. She voiced understanding but again did not seem to be happy with the treatment plan I am not sure what her compliance she will be she does have a history of opioid abuse. I will see her back in 2 weeks for her next recheck she is instructed to call for any further problems difficulties or questions. She was advised to use Tylenol and Advil with elevation for pain control. She can also use ice when necessary. Not available 03/29/2025 11:39:14 04/12/2025 04/12/2025 The patient has mild left ankle sprain laterally I have advised her to start working on range of motion exercises on her own at home she is 1 month status post injury she has fairly low tolerance to pain quite anxious with the exam but I have advised her that she can start working with this out of the boot for the most part she has been wearing the boot full-time. As far as her nondisplaced fracture through the base of the 5th metatarsal this looks good on x-ray new callus formation is noted on the x-rays today. The midfoot region does not show any ligamentous disruption no other fractures accept a very tiny avulsion fracture off the lateral aspect of the cuboid. New callus formation has begun to form compared to her previous x-rays show the fracture of the base of the 5th metatarsal appears to be healing well. I will see her back in 2 more weeks at that point we may get her out of the cam walker boot as long as everything looks good and she continues to heal well. She voiced understanding agrees with the above plan she will call for any further problems difficulties or questions. Not available 04/12/2025 14:27:10 04/26/2025 04/26/2025 The patient has a healing fracture of the base of the 5th metatarsal nondisplaced transverse in nature. There is some new callus formation still has some healing to do. For now we are going to protect her with a cam walker boot continue with that although I want her to take it off several times a day to work on range of motion exercises. I have ordered physical therapy for her I have advised her that she needs to start moving her ankle and getting back into normal activities in terms of range of motion and gentle strengthening. For protection she will wear the cam walker boot I will see her back in 2 more weeks we will take new x-rays at that point we may get her out of the cam walker boot as long as everything looks good and she continues to improve. I think a lot of her issues are hesitation and anxiety over possibly experiencing discomfort or pain I have advised her to work through this try to do as much range of motion she can with the ankle. Ankle x-rays were previously unremarkable I do not see any evidence of fracture or disruption of the stability of the ankle. She did request a walker to replace her lost crutch. She will use that and start to put more weight on it in the cam walker boot for now. Today's x-rays show some early healing otherwise unremarkable. She voiced understanding agrees above plan she will call for any further problems difficulties or questions. Not available 04/26/2025 11:36:34 Plan of Treatment Reminders Order Date Submit Date Provider Last Modified By Organization Details Last Modified Time Details Appointments Any 5 2024 08:45A M HERNESTO Ospina Not available Not available Not available Lab None recorded. Referral physical therapist referral - Please contact patient to schedule 2024 [email or web address] [facility], [address] [place], [address], 05/09/2025 12:27:00 Procedures None recorded. Surgeries None recorded. Imaging XR, ankle, 3 or more view 2024 025 Not available 04/26/2025 11:16:53 Medication Orders None recorded. Patient TargetsNo targets recorded. Patient InstructionsNo instructions recorded. Reason for Referral Physical Therapist Referral for Sprain of left ankle Please contact patient to schedule Referring Physician: Mindi Thompson, Orthopedic Surgery, Encounter Date: 04/26/2025 Results Created Date Observation Date Name Description Value Unit Range Abnormal Flag Note LastModifiedBy Organization Detail LastModifiedTime 03/29/20 25 03/29/2025 XR FOOT 3V+ UNILA T [id number] [facility] [address] [place] [address] [phone] RADIO LOGY REPOR T ____ Patie nt Name: KUSH Maza Date Of : 1999 3 Date Of Study : 2024 09:29 Ref. Physi josue: THOMPSON ____ Exami natio n: XR LEFT FOOT 3V+ UNILA T Clini brice Indic ation : Fall 2 weeks ago. Pain entir e foot. Bruis ing top and later al foot area. Michael rison : None. Techn ique: Three views of the left foot were obtai willa. Findi ngs: Subtl e undis place d fract ure of the base of the fifth metat arsal is noted . Rest of the visua lized tarsa l, metat arsal and phala nges appea r max l. The talar dome is intac t. Bone death claim examiner al densi ty is prese rved. The intra -adriano cular surfa enoc are withi n max l limit s. The soft tissu es are unrem arkab le. Impre ssion : Subtl e undis place d fract ure of the base of the fifth metat arsal is noted . Zay bettencourt Sonia d 2024 10:33 Marino Anime sh Not Available [facility] (Lab) [address] [place], [address], 05/07/2025 10:30:19 03/29/20 25 03/29/2025 XR ANKLE 3V+ UNILA T [id number] [facility] [address] [place] [address] [phone] RADIO LOGY REPOR T ____ Patie nt Name: KUSH Maza Date Of : 1999 3 Date Of Study : 2024 09:54 Ref. Physi josue: DONNA OBREGON Lay ____ Exami natio n: XR LEFT ANKLE 3V+ UNILA T Clini brice Indic ation : Fall 2 weeks ago, pain and swell ing to lt ankle . Michael rison : None. Techn ique: Multi ple views of the left ankle were obtai willa. Findi ngs: Displ aced chip fract ure noted at the base of fifth metat arsal . Rest of the visua lized bones are max l. Align ment of the bones is max l. Ankle joint appea rs max l. Mild soft tissu e swell ing noted aroun d the ankle and overl karyna base of fifth metat arsal . Impre ssion : Displ aced avuls ion fract ure noted at the base of fifth metat arsal . Mild soft tissu e swell ing noted aroun d the ankle and overl karyna base of fifth metat arsal . Zay antonio 2024 11:21 Marino Anime sh Not Available [facility] (Lab) [address] [place], [address], 05/07/2025 10:30:24 04/12/20 25 04/12/2025 XR FOOT 3V+ UNILA T [id number] [facility] [address] [place] [address] [phone] RADIO LOGY REPOR T ____ Patie nt Name: KUSH Maza Date Of : 1999 3 Date Of Study : 2024 Ref. Physi josue: THOMPSON ____ Exami natio n: XR FOOT 3V+ UNILA T Clini brice Indic ation : Follo w-up fx. Michael rison : None. Techn ique: Three views of the left foot were obtai willa. Findi ngs: Undis place d fract ure of the base of the fifth metat arsal is noted . Rest of the visua lized tarsa l, metat arsal and phala nges appea r max l. The talar dome is intac t. Bone death claim examiner al densi ty is prese rved. The intra -adriano cular surfa enoc are withi n max l limit s. The soft tissu es are unrem arkab le. Impre ssion : Undis place d fract ure of the base of the fifth metat arsal is noted . Zay antonio 2024 13:37 John Lanier Not Available [facility] (Lab) [address] [place], [address], 04/12/2025 14:38:53 04/12/2004/12/2025 XR FOOT 3V+ UNILA T [id number] [facility] [address] [place] [address] [phone] RADIO LOGY REPOR T ____ Patie nt Name: KUSH Maza Date Of : 1999 3 Date Of Study : 2024 12:45 Ref. Physi josue: THOMPSON ____ Exami natio n: XR FOOT 3V+ UNILA T Clini brice Indic ation : Follo w-up fx. Michael rison : None. Techn ique: Three views of the left foot were obtai willa. Findi ngs: Undis place d fract ure of the base of the fifth metat arsal is noted . Rest of the visua lized tarsa l, metat arsal and phala nges appea r max l. The talar dome is intac t. Bone death claim examiner al densi ty is prese rved. The intra -adriano cular surfa enoc are withi n max l limit s. The soft tissu es are unrem arkab le. Impre ssion : Undis place d fract ure of the base of the fifth metat arsal is noted . Zay antonio 2024 13:37 Piamp aiden Lanier Not Available [facility] (Lab) [address] [facility], [place], [address], 05/07/2025 10:30:29 04/26/2004/26/2025 XR FOOT 3V+ UNILA T [id number] [facility] [address] [place] [address] [phone] RADIO LOGY REPOR T ____ Patie nt Name: KUSH Maza Date Of : 1999 3 Date Of Study : 2024 09:36 Ref. Physi josue: DONNA OBREGON D ____ Exami natio n: XR FOOT 3V+ UNILA T Clini brice Indic ation : Follo w-up close d fract ure of 5th metat arsal bone with routi ne heali ng. Michael rison : None. Techn ique: Three views of the left foot were obtai willa. Findi ngs: Undis place d trans verse fract ure of the base of the 5th metat arsal is noted . Rest of the visua lized tarsa l, metat arsal and phala nges appea r max l. The talar dome is intac t. Bone death claim examiner al densi ty is prese rved. The intra -adriano cular surfa enoc are withi n max l limit s. The soft tissu es are unrem arkab le. Impre ssion : Undis place d trans verse fract ure of the base of the 5th metat arsal is noted . Zay bettencourt Sonia d 2024 10:38 Marino Anime sh Not Available [facility] (Lab) [address] [place], [address], 04/26/2025 11:39:13 04/26/20 25 04/26/2025 XR FOOT 3V+ UNILA T [id number] [facility] [address] [place] [address] [phone] RADIO LOGY MIKA T ____ Patie nt Name: KUSH Maza Date Of : 1999 3 Date Of Study : 2024 09:36 Ref. Physi josue: THOMPSON MINDI D ____ Exami natio n: XR FOOT 3V+ UNILA T Clini brice Indic ation : Follo w-up close d fract ure of 5th metat arsal bone with routi ne heali ng. Michael rison : None. Techn ique: Three views of the left foot were obtai willa. Findi ngs: Undis place d trans verse fract ure of the base of the 5th metat arsal is noted . Rest of the visua lized tarsa l, metat arsal and phala nges appea r max l. The talar dome is intac t. Bone death claim examiner al densi ty is prese rved. The intra -adriano cular surfa enoc are withi n max l limit s. The soft tissu es are unrem arkab le. Impre ssion : Undis place d trans verse fract ure of the base of the 5th metat arsal is noted . Elect tonny bettencourt Sonia d 2024 10:38 Marino Anime sh Not Available [facility] (Lab) [address] [facility], [place], [address], 05/07/2025 10:30:32 03/26/20 25 03/16/2025 XR, foot, 3 or more view No observ ation record ed. [email or web address] Not Available 02/2025 09:43:39 03/26/2003/16/2025 XR, ankle , 3 or more view No observ ation record ed. [email or web address] Not Available 02/2025 09:43:40 03/29/2003/29/2025 XR, foot No observ ation record ed. [address] [place], [address], 03/29/2025 14:08:45 03/29/2003/29/2025 XR, ankle No observ ation record ed. [address] [place], [address], 03/29/2025 14:08:46 04/12/2004/12/2025 XR, foot, 3 or more view No observ ation record ed. [address] [place], [address], 04/12/2025 16:58:32 04/26/2004/26/2025 XR, foot, 2 view No observ ation record ed. [address] [place], [address], 04/26/2025 13:56:14 05/07/2004/12/2025 XR, foot, 3 or more view No observ ation record ed. [address] (Imaging) [address] [place], [address], 05/07/2025 13:26:22 05/07/2003/29/2025 XR, ankle No observ ation record ed. [address] [place], [address], 05/07/2025 13:24:18 05/07/20 25 03/29/2025 XR, foot, 3 or more view No observ ation record ed. [email or web address] [facility] [address] [place], [address], 05/07/2025 13:27:06 05/07/20 25 04/26/2025 XR, foot, 3 or more view No observ ation record ed. [email or web address] Not Available 2024 13:27:22 Result Notes None recorded. Problems Name Problem SNOMED Code Status Onset Date Resolution Date Notes Provider Name and Address Organization Details Recorded Time Pain in left foot 9143504998852 07 Active 2024 Gema Echevarria CNA null, [facility] [employer] [facility] 10:26:32 Ankle pain 457724419 Active 2024 Asuncion Ashtons null, [facility] [employer] [facility] 10:52:26 Closed fracture of base of fifth metatarsal bone 952988690 Active 2024 Gema Echevarria CNA null, [facility] [employer] [facility] 13:49:40 Closed fracture of cuboid bone of foot 8010871 Active 2024 HERNESTO Ospina [address], [address], [facility] [employer] [facility] 5 11:40:14 Sprain of left ankle 1785643119354 9105 Active 2024 HERNESTO Ospina [address], [address], [facility] [employer] [facility] 5 11:40:42 Problem Notes None recorded. Procedures Surgical History Date Name Laterality Status Provider Name and Address Organization Details Recorded Time Tonsillectomy completed Gema Echevarria CNA [place] - [facility] [employer] 03/29/2025 10:36:14 Imaging Results None recorded. Procedure Notes None recorded. Medical Equipment None Reported. Allergies Allergen ID Allergen Name Allergen Category Reaction Reaction Severity Criticality Documentation Date Start Date Code Code System Note Provider Name and Address Organization Details Recorded Time 54816 Product containin g penicilli n (product) medicatio n hives Not available Not available 03/29/2025 05171 8688 SNOMED MARY Ruiz [facility] [employer] [facility] 10:34:05 Medications Not known to be on any medication Vitals Date Recorded Body height Body mass index (BMI) Body weight Provider Name and Address Organization Details Last Updated DateTime 03/29/2025 177.8 cm 29.3 kg/m2 21917.84 g Gema Echevarria CNA [facility] [employer] [facility] 03/29/2025 10:26:51 Date Recorded Body height Body mass index (BMI) Body weight Provider Name and Address Organization Details Last Updated DateTime 04/12/2025 177.8 cm 29.3 kg/m2 78727.84 g Gema Echevarria CNA [facility] [employer] [facility] 04/12/2025 13:44:46 Date Recorded Body height Body mass index (BMI) Body weight Provider Name and Address Organization Details Last Updated DateTime 04/26/2025 177.8 cm 29.4 kg/m2 30305.44 g Gema Echevarria CNA [facility] [employer] [facility] 04/26/2025 10:36:10 Social History Question Answer Notes LastModified by Azonia Details LastModified Time Tobacco Smoking Status Current Every Day Smoker vapes for the past six years MARY Ruiz [facility] [employer] [facility] 03/29/2025 10:35:56 What Was The Date Of Your Most Recent Tobacco Screening? 04/26/2025 Information not available 04/26/2025 Sex: Unknown Functional Status Question Answer Note LastModified by Organizat [employer] Details LastModified Time What is your level of alcohol consumption? Occasional Information not available 03/29/2025 Mental Status None recorded. Family History Relationship Description Onset Age of this Age Resolved Age Notes LastModified by Organization Details LastModified Time Mother Heart disease [email or web address] Not available 2024 10:34:25 Mother Hypertensive disorder [email or web address] Not available 2024 10:34:46 Mother Diabetes mellitus [email or web address] Not available 2024 10:35:12 Father Diabetes mellitus [email or web address] Not available 2024 10:35:12 Medical History No medical history recorded. Gynecological HistoryNo gynecological history recorded. Obstetrics History GPAL:G 0 P 0 0 0 0 Past Encounters Encounter ID Performer Location Encounter Start Date Encounter Closed Date Diagnosis/Indication Diagnosis SNOMED-CT Code Diagnosis ICD10 Code Diagnosis IMO Codes Diagnosis Note [id number] Michael Lobato MD [place] [address] 03/29/2025 10:17:23 03/29/2025 11:14:12 Pain in left foot 9734106077 34220 M79.876 7343995 Closed fra cture of base of fifth metatarsal bone 104928565 S92.352A 75362926 Closed fra cture of cuboid bone of foot 3720678 S92.212A 030082865 Sprain of left ankle 998 7168688 3903848 S93.402A 77649790 [id number] Michael Lobato [place] [address] 04/12/2025 13:41:06 04/12/2025 15:26:28 Sprain of left ankle 1162861309 0583269 S93.402D 42995631 Pain in left foot 979431 6293 69964 M79.672 166994 3504335 Closed fra cture of base of fifth metatarsal bone 653318165 S92.352D 43992254 Closed fra cture of cuboid bone of foot 2738183 S92.212D [id number] Michael Lobato MD [place] [address] 04/26/2025 10:33:27 04/26/2025 11:08:35 Sprain of left ankle 5222515156 4062236 S93.402D 17231541 Ankle pain 369517815 M25 .572 12324263 Pain in left foot 419217 5732 64934 M79.672 687439 8521523 Closed fra cture of base of fifth metatarsal bone 847970917 S92.352D 23081374 Closed fra cture of cuboid bone of foot 0670869 S92.212D 99121971 Health Concerns Section Related Observation LastModified by Organization Detai ls LastModified Time None Recorded Concern Status LastModified by Organization Details LastModified Time None Recorded Advance Directives Directive None Recorded Payers Insurance Date Sequence Insurance Name Policy Number Policy Bess Covered Member ID Bess Member ID Guarantor Name 05/08/2025 2 [facility] - DOS PRIOR TO 2025 (MEDICAID REPLACEMENT - HMO) [id number] Heavenlee Shaunna Rushing [id number] Hemartínnleric Galavizhing 05/07/2025 1 [facility] - DOS ON OR AFTER 2025 (MEDICAID REPLACEMENT - HMO) [id number] Heavenlee M Rushing [id number] Heavenlee M Rushing Notes Date Note Type Note Provider Name and Address Organization Details Recorded Time 03/29/2025 text/html The patient is a 25-year-old female who suffered an injury to her left foot about 2 weeks ago. The patient has admitted in the emergency room that she was using fentanyl and also drinking alcohol. She states she was on a skateboard when she fell off and suffered the injury. She waited awhile initially to seek treatment at [facility]. She had x-rays performed there on 03/16/2025. She did not bring the x-rays with her today we obtained new x-rays today of her left foot and left ankle. They demonstrate no bony or joint abnormalities in the ankle joint. She does have a closed acute traumatic nondisplaced transverse fracture through the base of the 5th metatarsal. There is also a small avulsion fracture likely arising from the lateral aspect of the cuboid. Joint spaces are otherwise well-maintained no evidence of a Lisfranc injury no other fracture lesion or mass. She comes in today for initial evaluation and treatment. She states she is having a lot of pain she had a splint applied she has been taking that on and off not sure how much she has been wearing it she has crutches she states she is unable to bear weight on the foot because of her significant pain about an 8 on a scale of 1-10. She has some mild swelling throughout the foot no neurovascular deficits or abrasions or scrapes. New past medical history sheet was reviewed and signed on the intake sheet of today's date drug allergies current medications family social history previous surgical history 10 point review of systems was reviewed and discussed in detail today with the patient. HERNESTO Ospina [address], [facility] [address], [place], [address], [email or web address] 03/29/2025 11:41:24 04/12/2025 text/html The patient returns for recheck of her left foot fracture she is now approximately 1 month status post injury. She had a twist and fall injury off a skateboard a month ago her x-rays demonstrated a nondisplaced fracture transverse in nature through the base of the 5th metatarsal with a small avulsion fracture off the lateral aspect of the cuboid. Ankle joint exam showed what appears to be a minor lateral ankle sprain. She was placed in a cam walker boot she was having quite a bit of pain really was hesitant to put any weight on it. She states recently she has started put a little bit of weight on it in the boot I have told her that is fine as long as she puts most of her weight on her heel try to avoid rocking through on the foot. She states today her pain is has improved when she gets twinges of pain that is about a 6 on a scale of 1-10 but really no pain at rest she comes in today for recheck and new x-rays. HERNESTO Ospina [address], [facility] [address], [place], [address], [employer] [facility] 04/12/2025 14:27:34 04/26/2025 text/html the patient returns today for recheck of her left foot fracture and left ankle sprain. Six weeks ago she had an injury where she twisted and fell off of a skateboard resulting in a nondisplaced fracture transverse in nature through the base of the 5th metatarsal with a small avulsion fracture off the lateral aspect of the cuboid. Ankle joint exam also shows what appears to be a lateral ankle sprain. She was placed in a cam walker boot she has gotten to the point where she can walk on it now puts full weight on it but when she takes the boot off she complains that her ankle feels very stiff and tight she also continues to have pain and tenderness over the base of the 5th metatarsal left foot. She has been instructed to work on range of motion exercises on her own with her ankle unfortunately she has fairly low tolerance to pain and anxiety with the exam and with trying to do anything with her foot. She also states that she had been using crutches for support she lost 1 of her crutches she is requesting a walker instead. She thinks she could put more weight on the foot out of the boot to work on her range of motion of her ankle. She comes in today for recheck and new x-rays. HERNESTO Ospina [address] [facility], [facility] [address], [place], [address], [place] [facility] 04/26/2025 11:37:24 OBGyn Episode No OBEpisode recorded.
--- OUTSIDE RECORDS SUMMARY | 2025-05-09 20:17 | XMS_ITS | Clinical Summary ---
Author Organization [facility] Address [address] [place] [address] Care Team Providers Care Final Assembly Worker Name Role Phone Unavailable Primary Care Provider [...] COVID-19 Vaccine ( - 2023-2 5 season) 2025 Influenza Adult (#1) 2025 Hepatitis A Vaccines Aged Out No long er eligible based on patient's age to complete this topic Meningococcal B Vaccine Aged Out No l [...]
--- OUTSIDE RECORDS SUMMARY | 2025-05-09 20:17 | XMS_ITS | Patient Health Record ---
Author Organization [facility] Address [address] [place] [address] Care Team Providers Care Lapidary Apprentice Name Role Phone JalilFransisca Primary Care Provider Annabel Wiggins Unavailable [phone] Annabel Wiggins Unavailable [phone] Allergies Allergen (clinical drug ingredient) Drug/Non Drug [...] Status Risk Notes Problem Posttraumatic stress disorder (49207762) PTSD (post-traumatic stress disorder) (F43.10) Active confirmed Problem Attention deficit hyperactivity disorder (742273030) ADHD (attention deficit hyperactivity disorder) (F90.9) Active confirmed Problem Dissociative disorder (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) 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 Plan Of Treatment No Information Insurance Providers Payer Name Payer Address Payer Phone Subscriber Number Group Number Insured Name Patient Relationship to Insured Coverage Start Date Coverage End Date [facility] Attn Claims Department [address] [place] [address] [phone] [id number] Alejandra Najera Self - patient is the insured 4 [facility] Attn Claims Department [address] [place] [address] [phone] [id number] Alejandra Najera Self - patient is the insured 1 Medical (General) History Hospitalization History Reason Date(Month/Year) cutting october 201608/05 SI 09/05
[2025-05-09] MEDS: HYDROmorphone HCL INJ (*CRX) 1 MG/ML SYR IV PUSH (20:51)
== END 2025-05-09 21:30 | disposition left against medical advice (07) ==
LOC: ANHED 17:54
PROVIDERS: Emergency Provider Registered Nurse
DX: R10.31 Right lower quadrant pain (principal); F17.290 Nicotine dependence, other tobacco product, uncomplicated
CPT/HCPCS: 36415; 74177; 76705; 80053; 80307; 81025; 82077; 83605; 83690; 84484; 85025; 85380; 85610; 85730; 93005; 96361; 96374; 96375; 96376; 99284; J1171; J2270; J2405; J7030; Q9967